=== PATIENT | female | born 1980 | race Caucasian/White ===

== ENCOUNTER → 2021-01-05 | Outpatient (CLI) | payer BC, OTHER | LOC: SJCVCIMAG 14:08 | PROVIDERS: ATTEND Internal Medicine | DX: R94.31 Abnormal electrocardiogram [ECG] [EKG] (principal); R07.9 Chest pain, unspecified; R06.00 Dyspnea, unspecified ==

== ENCOUNTER → 2021-01-20 | Outpatient (CLI) | payer BC, OTHER ==
[~2021-01-20] VITALS: Ht 157.5 cm; Wt 75.0 kg
[~2021-01-20] MED LIST: IMITREX100 MG PO; ONE DAILY WOME1 EAC3 PO; ROSUVASTATIN CA40 MG PO
[2021-01-20 07:28] VITALS: BP 138/80
--- NOTE | 2021-01-20 09:11 | CATHLAB ---
[facility] [place] [address] INVASIVE PROCEDURE REPORT Name: CLARK JONES Room #: REG REINIER Morgan#: [id number] Admission: 01/20/21 Attend Phys: Curly Banegas MD, Discharge: Date of : 78 Report #: [id number] THIS REPORT FOR: cc: FAM - Family physician unknown FAM - Family physician unknown Curly Banegas MD [facility] ~ APPROVED REPORT Study performed: 01/20/2021 07:39:57 Patient Details Patient Status: Out-Patient Room #: The patient is a 40 year-old female Event Personnel Curly Banegas Scrap Preparer, Virginie Reed RTR Monitor, Peggy Khanna RN RN, Madyson Feliciano RTR, HVAC SERVICE TECHNICIAN Scrub Procedures Performed Art Access - R femoral artery* Left Heart Cath w/or w/o Coronaries [id number] [facility] Hemostasis w/ Mynx 77517 Initial Mod Sed Same Phys/QHP Gr5y [id number] 06985 Mod Sed Same Phys/QHP Ea [id number] Procedure Narrative The patient was brought electively to the Cardiac Catheterization Laboratory and was prepped and draped in a sterile manner. The Right Groin^ was infiltrated with 1% Lidocaine subcutaneous anesthesia. A PINNACLE 6FR Sheath #[id number] sheath was inserted into the RFA^. Coronary angiography was performed using coronary diagnostic catheters. The right coronary system was accessed and visualized with a JR4 catheter. The left coronary system was accessed and visualized with a JL4 catheter. The left ventricle was accessed and visualized with a ANGLED PIGTAIL catheter. Left ventriculogram was performed in 30 degree projection. Closure device was deployed with a Fr MYNXGRIP 6/7F #[id number]. The patient tolerated the procedure well and there were no complications associated with the procedure. There was no hematoma. Intraoperative Conscious Sedation Sedation start time: 8:10 Case end Time: 8:37 Fentanyl 75 mcg Versed 1 mg [facility] [place] [address] INVASIVE PROCEDURE REPORT Name: KAREN,CLARK Room #: REG [facility]#: [id number] Admission: 01/20/21 Attend Phys: Curly Banegas, Discharge: Date of : 78 Report #: [id number] Fluoro Time: 1.23 minutes Dose: DAP 2109.60 cGycm2 249 mGy Contrast Type and Amount: Omnipaque 110 ml Coronary Angiography The patient's coronary anatomy is right dominant. Diagnostic Cath Left Main Normal left main LAD Normal left anterior descending Diagonal 1 Mild ectasia and plaquing at the origin of the first and single diagonal branch Circumflex Large but nondominant circumflex comprised of a single marginal branch OM1 Normal OM1 Right Coronary Dominant right coronary, angiographically normal R PDA Normal posterior descending RPLV Normal posterior lateral branch Left Ventriculography The left ventricle is normal in size with normal contractility. The left ventricular ejection fraction is estimated to be 60-65%. Left ventricular wall motion abnormalities are not present. There is no mitral insufficiency. Hemodynamics The aortic pressure is 185/60 mmHg with a mean of 100 mmHg. The left ventricular pressure is 156/-6 mmHg with a mean of mmHg. The left ventricular end diastolic pressure is 25 mmHg. Conclusion 1. Normal global and regional left ventricular systolic function. EF 65% 2. Normal left main 3. Normal coronary vasculature with the exception of minimal ectasia and plaquing at the origin of a single, first diagonal branch 4. Dominant right coronary <ELECTRONICALLY SIGNED> By: Curly Banegas MD, FACC 01/20/21910 0 0 Curly Banegas MD, FACC /INF
== END | disposition home or self-care (01) ==
LOC: CATH 06:25
PROVIDERS: ATTEND Internal Medicine
DX: R94.39 Abnormal result of other cardiovascular function study (principal); R07.9 Chest pain, unspecified; I25.10 Atherosclerotic heart disease of native coronary artery without angina pectoris; E78.5 Hyperlipidemia, unspecified; G43.909 Migraine, unspecified, not intractable, without status migrainosus; F17.210 Nicotine dependence, cigarettes, uncomplicated; Z98.890 Other specified postprocedural states; Z79.899 Other long term (current) drug therapy; Z98.51 Tubal ligation status